=== PATIENT | male | born 1970 | race Caucasian/White ===

== ENCOUNTER 2018-10-15 15:11 | Observation (INO) | payer BC ==
[~2018-10-15] VITALS: Ht 190.5 cm; Wt 110.9 kg
--- NOTE | ~2018-10-15 | ST ---
PATIENT:STEVE CASTRO MEDICAL RECORD: [id number] SEX: M [facility] ORDER #: ADMISSION DATE: 10/15/18 AGE OF PATIENT: 48 REFERRING PHYSICIAN: INTERPRETING PHYSICIAN: JESSIKA RAIN MD DATE OF SERVICE: 10/16/2018 EXERCISE STRESS TEST INDICATION: Chest pain of unknown etiology. He was exercised under standard Edilberto protocol for 6 minutes, terminated due to achievement of maximum target heart rate response with no EKG changes, no dysrhythmias, no anginal symptomatology. OVERALL IMPRESSION: Negative for inducible ischemia at adequate cardiac workload. TRANSINT:[id number] Voice Confirmation ID: [id number] DOCUMENT ID: [id number] JESSIKA RAIN MD CC: [id number] DICTATION DATE: 10/16/18 1322 ENVIRONMENTAL AID: [id number] DIS IN 10/16/18 [place] [id number] [place] [id number]
[2018-10-15] MEDS ORDERED: CARDURA4 MG PO (15:15)
[2018-10-15] MEDS ORDERED: SALINE NASAL SPRAY (15:16)
[2018-10-15] MEDS ORDERED: BAYER CHEWABLE81 MG PO (15:16)
[2018-10-15 15:42] LABS: BASOPHILS 1.2 % (0-2); EOSINOPHILS 3.8 % (0-7); HEMATOCRIT 41.2 % (42.0-54.0); IMMATURE GRANULOCYTES 0.1 % (0-5); LYMPHOCYTES 43.7 % (15-50); MCH 32.4 pg (26.0-34.0); MCHC 36.4 g/dL (31.0-37.0); MEAN PLATELET VOLUME 10.5 fL (7.4-10.4); MONOCYTES 7.1 % (2-11); NEUTROPHILS 44.1 % (40-80); PLATELET COUNT 212 10x3/uL (130-400); RBC 4.63 10x6/uL (4.20-6.10); WBC 6.8 10x3/uL (4.8-10.8)
[2018-10-15 15:58] LABS: APTT 27.2 SECONDS (22.8-39.4); INR 1.06 (0.85-1.17); PROTIME 13.3 SECONDS (11.6-15.0)
[2018-10-15 16:04] LABS: ALKALINE PHOSPHATASE 84 U/L (46-116); ALT (SGPT) 39 U/L (10-68); BILIRUBIN - TOTAL 0.52 mg/dL (0.2-1.3); CALC OSMOLALITY 278 mosm/kg (275-300); CALCIUM 8.8 mg/dL (8.5-10.1); CARBON DIOXIDE 25.9 mmol/L (21.0-32.0); CHLORIDE - SERUM 102 mmol/L (98-107); CREATININE - SERUM 1.1 mg/dL (0.6-1.3); GLUCOSE 111 mg/dL (74-106); POTASSIUM - SERUM 3.3 mmol/L (3.5-5.1); PROTEIN - SERUM 8.1 g/dL (6.4-8.2); SODIUM 139 mmol/L (136-145); UREA NITROGEN 12 mg/dL (7-18); eGFR NON AFRICAN AMERICAN 76 mL/min (90-120)
--- NOTE | 2018-10-15 16:05 | NUR ---
REPORTS PAIN 4/10 PRIOR TO NTG
[2018-10-15 16:18] LABS: CKMB 2.7 U/L (0.0-3.6); CREATINE KINASE 147 UL (21-232); MAGNESIUM - SERUM 1.9 mg/dL (1.8-2.4)
[2018-10-15 16:19] LABS: TROPONIN-I < 0.017 ng/mL (0.000-0.060)
[2018-10-15 16:42] VITALS: BP 121/83
[2018-10-15 18:31] VITALS: BP 121/81
[2018-10-15] MEDS ORDERED: FLUTICASONE PRO16 GM NASAL (19:35)
--- NOTE | 2018-10-15 19:35 | NUR ---
PT ARRIVED TO ROOM 2120 PT IS AAO, UP AD ART. NO S/S OF DISTRESS DENIES ANY CHEST PAIN AT THIS TIME. TELEMETRY APPLIED, QUICK START, MED REC AND HISTORY COMPLETE. NAME AND DATE PLACED ON BOARD. HEART SOUNDS S1S2 RRR LUNGS CLEAR, BOWEL SOUNDS ACTIVE. NO WEAKNESS NOTED. RIGHT AC 20G S/L PT VERBALIZED UNDERSTANDING TO BE NPO AFTER MIDNIGHT FOR POSSIBLE HEART CATH IN MORNING. WAITING TO SEE CARDIOLOGY. FAMILY AT BEDSIDE. OFFERED SNACK. PT WILL CALL FOR ASSIST WHEN NEEDED. WILL CPOC
[2018-10-15] MEDS ORDERED: XANAX0.5 MG PO (19:36)
[2018-10-15] MEDS ORDERED: CYCLOBENZAPRINE10 MG PO (19:37)
[2018-10-16 01:32] VITALS: BP 132/58; Ht 190.5 cm; Wt 110.9 kg
[2018-10-16 04:00] VITALS: BP 133/86
[2018-10-16 05:49] LABS: BASOPHILS 0.7 % (0-2); HEMATOCRIT 41.9 % (42.0-54.0); IMMATURE GRANULOCYTES 0.1 % (0-5); LYMPHOCYTES 30.5 % (15-50); MCHC 35.8 g/dL (31.0-37.0); MCV 89.3 fL (80.0-100.0); MEAN PLATELET VOLUME 10.8 fL (7.4-10.4); MONOCYTES 9.4 % (2-11); NEUTROPHILS 55.3 % (40-80); PLATELET COUNT 216 10x3/uL (130-400); RBC 4.69 10x6/uL (4.20-6.10); WBC 7.3 10x3/uL (4.8-10.8)
[2018-10-16 06:26] LABS: CALC OSMOLALITY 277 mosm/kg (275-300); CALCIUM 8.6 mg/dL (8.5-10.1); CARBON DIOXIDE 25.9 mmol/L (21.0-32.0); CHLORIDE - SERUM 106 mmol/L (98-107); GLUCOSE 82 mg/dL (74-106); POTASSIUM - SERUM 3.7 mmol/L (3.5-5.1); SODIUM 140 mmol/L (136-145); TROPONIN-I < 0.017 ng/mL (0.000-0.060); UREA NITROGEN 13 mg/dL (7-18); eGFR NON AFRICAN AMERICAN 85 mL/min (90-120)
--- NOTE | 2018-10-16 07:30 | NUR ---
ASSESSMENT COMPLETED. ALERT AND ORIENTED. TLEMERTY SHOWS SR. UP AB ART. DENIES ANY NEEDS. TO HAVE A STRESS TEST AND ECH
[2018-10-16 08:25] VITALS: BP 136/85
--- NOTE | 2018-10-16 09:51 | HP ---
PATIENT: STEVE CASTRO MEDICAL RECORD: [id number] ACCOUNT: [id number] LOCATION:[address] : 74 ADMISSION DATE: 10/15/18 PCP: THOR FIERRO MD HISTORY AND PHYSICAL EXAMINATION ADMITTING DIAGNOSES: 1. Chest pain. 2. Anxiety. 3. Hypertension. HISTORY OF PRESENT ILLNESS: This is a gentleman with no previous cardiac history, who just yesterday began having some episodes of chest discomfort, had many typical components for angina. It was a dull aching sensation with radiation to his jaw line down his arm. He is pain free overnight. His troponins are normal. His EKG is normal. His only cardiac risk factor is hypertension for which he takes Cardura and it is well controlled. PHYSICAL EXAMINATION: GENERAL APPEARANCE: Well-nourished, well-developed, appears stated age. Level of distress, comfortable. PSYCHIATRIC: Mental status, alert, normal affect. Orientation, oriented to time, place and person. EYES: Lids and conjunctiva, noninjected. No discharge, no pallor. ENT: Lips, teeth, gums, normal dentition. Oropharynx, no cyanosis, no pallor. NECK: Carotid arteries, bilateral normal upstroke, no bruits, no thrills. JUGULAR VEINS: No jugular venous pressure or distention. CERVICAL LYMPH NODES: Nontender, nonenlarged. THYROID: Not enlarged. Nontender. No nodules. LUNGS: Respiratory effort, unlabored. CHEST: Normal curvature. No thoracic deformity. No chest wall tenderness. Percussion, resonant. Auscultation, clear. No wheezes, no rales, no rhonchi. CARDIOVASCULAR: Precordial exam, nondisplaced. No heaves or pericardial thrills. Rate and rhythm, regular. Heart sounds, normal S1, normal S2. No S3, no gallop, no rub. Systolic murmur, not heard. Diastolic murmur, not heard. EXTREMITIES: No cyanosis, no edema. Peripheral pulses, full and equal in all extremities, except as noted. No bruits appreciated. ABDOMEN: Soft, nondistended. Normal aorta. No bruit. Nontender. No masses. Liver, nontender, no hepatomegaly. Spleen, nontender, no splenomegaly. MUSCULOSKELETAL: No joint tenderness. No joint swelling. No erythema. NEUROLOGICAL: Normal gait, normal strength, normal tone. SKIN: Warm and dry. OVERALL IMPRESSION: Chest pain, normal EKG, normal troponins, minimal risk factors. We will perform stress testing. Further care depends upon his stress test. TRANSINT:[id number] Voice Confirmation ID: [id number] DOCUMENT ID: [id number] HISTORY AND PHYSICAL [id number] STEVE CASTRO, JESSIKA BUTTERFIELD at 0951 CC: [id number] DICTATION DATE: 10/16/18 0759 SHALE PLANER OPERATOR: 10/16/18 0840 ADM IN [facility] [address] [place] [id number]
--- NOTE | 2018-10-16 10:00 | NUR ---
BACK FROM STRESS TEST AND HAVING AN ECHO. NO NEEDS VOICED
--- NOTE | 2018-10-16 15:03 | EC ---
PATIENT:STEVE CASTRO DATE OF SERVICE: 10/15/18 SEX: M MEDICAL RECORD: [id number] DATE OF : 74 LOCATION:D.M2 D.212 AGE OF PATIENT: 48 ADMISSION DATE: 10/15/18 REFERRING PHYSICIAN: INTERPRETING PHYSICIAN: JESSIKA HOLLEY MD ECHOCARDIOGRAM REPORT ECHO CHARGES 4 ECHO COMPLETE Date: 10/16/18 CLINICAL DIAGNOSIS: CHEST PAIN/MURMUR ECHOCARDIOGRAPHIC MEASUREMENTS (adult normal given) AC root (d.<3.7cm) 3.9 cm LV Septum d (<1.2 cm> 1.5 cm Valve Excursion 1.7 cm LV Septum (systole) 1.6 cm Left Atria (s.<4.0cm> 4.2 cm LVPW d(<1.2cm) 1.4 cm RV (d.<2.3cm) 5.0 cm LVPW (sytole) 1.8 cm LV diastole(<5.6CM) 4.8 cm MV E-F(>70mm/sec) cm LV systole 3.4 cm LVOT Diameter 2.7 cm MV exc.(>10mm) 1.0 cm Est.ejection fraction (50-75%) % DOPPLER: LVIT cm/sec A 80.0 cm/sec E 70.0 cm/sec LA cm/sec RVSP 18 mmHg LVOT 93 cm/sec AOP1/2T m/s Asc. Ao 119 cm/sec RVOT 86 cm/sec RA cm/sec PA 124 cm/sec AV Gradient Peak 5.65 mmHg AV Mean 3.28 mmHg AV Area 3.9 cm MV Gradient Peak 2.59 mmHg MV Mean 1.25 mmHg MV Area cm COMMENTS: Welder Repair: Speedy MCKINNON [employer] Attorney: 1 Dr. Holley TAPE# PACS Pericardial Effusion N DATE OF SERVICE: 10/16/2018 FINDINGS: 1. Left ventricular chamber size is within normal limits. Left ventricular systolic function is normal. Overall ejection fraction estimated at 60%. 2. Left atrium, right atrium, and right ventricular chamber sizes are mildly dilated. 3. Valvular structures have normal structure and motion. 4. Doppler interrogation reveals mild tricuspid regurgitation. No other valvular insufficiency or stenosis. ECHOCARDIOGRAM REPORT [id number] STEVE CASTRO 5. No evidence of pericardial effusion or left ventricular thrombus. TRANSINT:[id number] Voice Confirmation ID: [id number] DOCUMENT ID: [id number] JESSIKA HOLLEY MD at 1503 CC: [id number] DICTATION DATE: 10/16/18 1322 WALLCOVERING TEXTURER: 10/16/18 1337 DIS IN 10/16/18 [place] [id number] [place] [id number]
--- NOTE | 2018-10-19 09:23 | MORECARE ---
CASE MANAGEMENT DISCHARGE SUMMARY PATIENT: STEVE CASTRO UNIT: [id number] ADM DATE: 10/15/18 AGE: 48 : 74 SEX: M ROOM/BED: D.2121 AUTHOR: ANIVAL LOVE PHYSICIAN: REFERRING PHYSICIAN: JESSIKA RAIN MD DATE OF SERVICE: 10/19/18 Discharge Plan Patient Name: STEVE CASTRO [facility] : 1970 Planned Disposition: Home Anticipated Discharge Date: 10/16/18 Discharge Date: 10/16/2018 Expected LOS: 1 Initial Reviewer: [email or web address] Initial Review Date: 10/19/2018 Generated: 10/19/18 10:23 am Patient Name: STEVE CASTRO Page [phone] at 0923 All edits/amendments must be made on the electronic document DICTATION DATE: 10/19/18921 ARTIFICIAL LOG MACHINE OPERATOR: CRHISSY 10/19/18921 RPT#: [id number] DC DATE:10/16/18 STATUS: DIS IN [facility] [address] [place] [address] END OF REPORT
== END 2018-10-16 11:35 | disposition home or self-care (01) ==
LOC: D.CATH 15:11 → D.ER 15:11 → OBSVTIME 18:42 → D.M2 18:42 → EDSTATUS 19:07 → D.M2 10-16 11:35
PROVIDERS: Family Medicine; ADMIT Internal Medicine Interventional Cardiology; ATTEND Internal Medicine Interventional Cardiology
DX: R07.9 Chest pain, unspecified (principal); F41.9 Anxiety disorder, unspecified; I10 Essential (primary) hypertension

== ENCOUNTER → 2019-12-02 09:42 | Outpatient (CLI) | payer BC ==
[2018-10-16 01:32] VITALS: BMI 30.5
[~2019-12-02 09:42] MED LIST: BAYER CHEWABLE81 MG PO; CARDURA4 MG PO; CYCLOBENZAPRINE10 MG PO; FLUTICASONE PRO16 GM NASAL; SALINE NASAL SPRAY; XANAX0.5 MG PO
== END | disposition home or self-care (01) ==
LOC: D.HCCARDIO 09:42 → D.HCCECHO 10:30
PROVIDERS: ATTEND Internal Medicine Cardiovascular Disease
DX: R01.1 Cardiac murmur, unspecified (principal); I20.9 Angina pectoris, unspecified

== ENCOUNTER 2019-12-14 12:26 | Outpatient (CLI) | payer BC ==
[~2019-12-14] VITALS: Ht 190.5 cm; Wt 101.8 kg
--- NOTE | ~2019-12-14 | HEMODYNAMI ---
PATIENT:STEVE CASTRO MEDICAL RECORD: [id number] : 74 LOCATION:D.CAT ADMISSION DATE: 12/14/19 Generatedon:12/14/201914:35 Patient name: STEVE CASTRO Patient #: [id number] SSN: [id number] : 1970 Date of study: 12/14/2019 Page: Of Hemodynamic Procedure Report Patient Data Patient Demographics Procedure consent was obtained First Name: STEVE Gender: Male Last Name: GLORIA : 1970 Patient #: [id number] Age: 49 year(s) Race: SSN: [id number] Additional ID: [id number] Contact details [address]: [address] [place] [address] State: [place] City: [place] Zip code: [address] Past Medical History Performed procedures and imaging results Date Procedure Procedure Results Comments Stress testing Positive->Intermediate with SPECT MPI risk Allergies: No known allergies Admission Admission Data Admission Date: 12/14/2019 Admission Time: 12:26 Arrival Date: 12/14/2019 Arrival Time: 0:00 Admit Source: Other Insurance Payor: Private health insurance [facility] #: [id number] Height (in.): 75 BSA: 2.3 (m2) Height (cm.): 190.5 BMI: 28 (kg/m2) Weight (lbs.): 224 Weight (kg.): 101.6 Lab Results Lab Result Date: 12/14/2019 Lab Result Time: 0:00 Biochemistry Name Units Result Min Max BUN mg/dl 11 --(-*--)-- 7 18 Creatinine mg/dl 1.1 --(--*-)-- 0.6 1.3 eGFR ml/min 76.12730 *-(----)-- 90 120 NONAFRICAN CBC Name Units Result Min Max Hematocrit % 42.7 --(*---)-- 42 54 Hemoglobin g/dl 15.1 --(-*--)-- 13.5 17.5 Procedure Procedure Types Cath Procedure Diagnostic Procedure [facility] w/Coronaries Procedure Description Procedure Date Procedure Date: 12/14/2019 Procedure Start Time: 14:20 Procedure End Time: 14:33 Procedure Staff Name Function Cm Lopez MD Performing Physician Tony Siu RN Nurse Lucien Gallego RT Monitor Carole Walsh RT Scrub Procedure Data Cath Procedure Fluoroscopy Diagnostic fluoroscopy Total fluoroscopy Time: 0.8 time: 0.8 min min Diagnostic fluoroscopy Total fluoroscopy dose: 293 dose: 293 mGy mGy Contrast Material Contrast Material Type Amount (ml) Isovue 300 44 Entry Location Entry Primary Successful Side Size Upsize Upsize Entry Closure Szymanski ccessful Closure Location (Fr) 1 (Fr) 2 (Fr) Remarks Device Remarks Radial Right 6 Fr Mechanical artery Short Compression Estimated blood loss: 10 ml Diagnostic catheters Device Type Used For End Catheter Placement DIAGNOSTIC Dennis Port 110cm 5 Procedure Fr catheter ([id number]) Procedure Medications Medication Administration Route Dosage 0.9% NaCl I.V. 100 ml/hr Oxygen etCO2 Nasal cannula 2 l/min Heparin Flush Bag added to field 2 bags (1000units/500ml NS) Lidocaine 2% added to field 20 Radial Cocktail added to field 1 syringe (Verapamil 2mg/Nitro 400mcg/Heparin 1500units) Versed I.V. 2 mg Fentanyl I.V. 100 mcg Versed I.V. 2 mg Fentanyl I.V. 100 mcg Versed I.V. 2 mg Versed I.V. 2 mg Hemodynamics Rest BSA: 2.3 (m2) HGB: 15.1 (g/dl) O2 Consumption: Estimated: 300.07 (ml/min) O2 Con sumption indexed: Estimated:130.47 (ml/min/m) Heart Rate: 97 (bpm) Pressure Samples Time Site Value (mmHg) Purpose Heart Use Rate(bpm) 14:23 LV 126/7,9 Snapshot 103 Gradients Valve Time Site Site Mean SEP/DFP Peak To Heart Use 1 2 (mmHg) (sec/min) Peak Rate (mmHg) (bpm) Aortic 14:24 LV AO 112 Snapshots Pre Cath Intra NCS Post Cath Vital Signs Time Heart Resp SPO2 etCO2 NIBP (mmHg) Rhythm Pain Sedation Rate (ipm) (%) (mmHg) Status Level (bpm) 14:01:02 93 11 99 29.1 139/94(111) NSR 0 (11) 10(A) , No pain 14:05:22 91 19 99 33.5 144/89(120) NSR 0 (11) 10(A) , No pain 14:09:45 94 13 99 35 148/99(116) NSR 0 (11) 10(A) , No pain 14:14:07 97 13 98 36.5 146/102(118) NSR 0 (11) 10(A) , No pain 14:18:29 100 12 96 29.1 150/99(117) NSR 0 (11) 10(A) , No pain 14:22:55 110 16 97 22.3 139/86(112) NSR 0 (11) 10(A) , No pain 14:27:16 106 14 94 35 141/85(109) NSR 0 (11) 10(A) , No pain 14:31:40 91 13 94 0 124/85(100) NSR 0 (11) 10(A) , No pain Medications Time Medication Route Dose Verified Delivered Reason Notes E ffectiveness by by 13:59:01 0.9% NaCl I.V. 100 Tony Tony Per ml/hr Salbador Lorigan physician RN RN 13:59:11 Oxygen etCO2 2 l/min Tony Tony for low 02 Nasal Lorigan Lorigan sats cannula RN RN 13:59:24 Heparin Flush added 2 bags Tony Tony used for Bag to Lorigan Lorigan procedure (1000units/500ml field RN RN NS) 13:59:34 Lidocaine 2% added 20ml Tony Tony for local to vial Lorigan Lorigan anesthetic field RN RN 13:59:46 Radial Cocktail added 1 Tony Tony used for (Verapamil to syringe Lorigan Lorigan procedure 2mg/Nitro field RN RN 400mcg/Heparin 1500units) 14:13:49 Versed I.V. 2 mg Tony Tony for Lorigan Lorigan sedation RN RN 14:13:57 Fentanyl I.V. 100 mcg Tony Tony for Lorigan Lorigan sedation RN RN 14:18:08 Versed I.V. 2 mg Tony Tony for Lorigan Lorigan sedation RN RN 14:18:16 Fentanyl I.V. 100 mcg Tony Tony for Lorigan Lorigan sedation RN RN 14:20:38 Versed I.V. 2 mg Tony Tony for Salbador Siu sedation RN RN 14:22:55 Versed I.V. 2 mg Tony Tony for Salbador Siu sedation RN utilities estimator and drafter Log Time Note 13:31:50 Informed consent obtained and on chart 13:32:12 Diagnostic Cath Status : Elective 13:32:25 Arrival Date: 12/14/2019 12:00:00 AM 13:32:26 Admit Source: Other 13:32:29 Insurance Payor : Private health insurance 13:34:35 Lab Result : Creatinine 1.1 mg/dl 13:34:35 Lab Result : BUN 11 mg/dl 13:34:35 Lab Result : eGFR NONAFRICAN 76.93530 ml/min 13:34:35 Lab Result : Hemoglobin 15.1 g/dl 13:34:35 Lab Result : Hematocrit 42.7 % 13:38:59 Procedure Status Elective Heart Cath (OP). 13:39:06 Time tracking: Regular hours (M-F 7:00 - 5:00) 13:39:10 Plan of Care:Hemodynamics will remain stable., Cardiac rhythm will remain stable., Comfort level will be maintained., Respiratory function will remain adequate., Patient/ family verbilizes understanding of procedure., Procedure tolerated without complication., Recovers from procedure without complications.. 13:39:36 H&P Date Dictated: 11/22/2019 Within 30 days and on chart.. 13:39:37 Pre-procedure instructions explained to patient. 13:39:38 Pre-op teaching completed and patient verbalized understanding. 13:39:39 Family unavailable. 13:39:41 Patient NPO since Midnight. 13:39:46 Patient allergic to No known allergies 13:39:54 Lab results completed and on chart. 13:40:10 Stress Test: yes; abnormal INFERIOR WALL 13:40:12 Alarms reviewed by R. N. 13:40:12 Sharps counted by scrub and verified by R.N. 13:49:25 Tony Siu RN sent for patient. Start room use. 13:51:56 Patient received from Pre/Post Procedure Room to CCL 1 Alert and oriented. Tansferred to table in Supine position. 13:51:58 Correct patient and procedure confirmed by team. 13:51:58 Warm blankets applied, and pastor hugger turned on for patient comfort. 13:51:59 ECG and BP/O2 sat monitors applied to patient. 13:52:02 Is the patient allergic to Iodine/contrast media? No. 13:59:01 0.9% NaCl 100 ml/hr I.V. was administered by Tony Siu RN; Per physician; Verbal order read back and verified. 13:59:11 Oxygen 2 l/min etCO2 Nasal cannula was administered by Tony Siu RN; for low 02 sats; Verbal order read back and verified. 13:59:24 Heparin Flush Bag (1000units/500ml NS) 2 bags added to field was administered by Tony Siu RN; used for procedure; Verbal order read back and verified. 13:59:34 Lidocaine 2% 20ml vial added to field was administered by Tony Siu RN; for local anesthetic; Verbal order read back and verified. 13:59:46 Radial Cocktail (Verapamil 2mg/Nitro 400mcg/Heparin 1500units) 1 syringe added to field was administered by Tony Siu RN; used for procedure; Verbal order read back and verified. 13:59:51 Vital chart was started 14:00:12 Baseline sample Acquired. 14:00:22 Rhythm: sinus tachycardia 14:00:25 Full Disclosure recording started 14:01:08 Is patient on blood thinner?No 14:01:16 Patient diabetic? No. 14:01:18 If diabetic: On Metformin? No 14:01:21 ----Pre-sedation anethsthesia assessment.---- 14:01:24 Previous problem with sedation/anesthesia? No ? 14:01:27 Snore? Yes 14:01:29 Sleep apnea? Yes 14:01:32 Deviated septum? No 14:01:33 Opens mouth fully? Yes 14:01:34 Sticks out tongue? Yes 14:01:37 Airway obstruction? No ? 14:01:42 Dentures? No ? 14:01:52 Pre procedure: right dorsailis pedis pulse 2+ Normal; easily identifiable; not easily obliterated 14:02:01 Modified Raul's test Ulnar < 7 seconds 14:02:04 Patient pain scale 0/10 ?. 14:02:12 IV patent on arrival in right forearm with 0.9% NaCl at [facility]. 14:02:34 Right Radial & Right Groin area was prepped with chlora-prep and draped in sterile fashion 14:05:42 Patient Height : 75 inches 14:05:51 Patient Weight : 224 lbs 14:09:12 Risk of Mortality: <.1% 14:09:20 Risk of blood transfusion: 0.1% 14:09:30 Risk of OCTAVIA: .1% 14::57 Physician arrived 14::58 --------ALL STOP TIME OUT------ 14:09:59 Final Timeout: patient, procedure, and site verified with staff and physician. All members of the team are in agreement. 14:10:02 Right Radial & Right Groin site verified by team. 14:10:08 Fire Safety Assessment: A--An alcohol-based skin anteseptic being used preoperatively., C--Open oxygen or nitrous oxide is being used., D--An ESU, laser, or fiber-optic light is being used. 14:10:17 Physical assessment completed. ASA score P 2 - A patient with mild systemic disease as per Cm Lopez MD. 14:10:50 2) 60-89 Mildly reduced kidney function, and other findings (as for stage 1) point to kidney disease. 14:11:14 Maximum allowable contrast dose (3.7 X eGFR X 0.75)210 ml. 14:11:19 Sedation plan: IV Moderate Sedation Medication:Versed, Fentanyl 14:13:49 Versed 2 mg I.V. was administered by Tony Siu RN; for sedation; Verbal order read back and verified. 14:13:57 Fentanyl 100 mcg I.V. was administered by Tony Siu RN; for sedation; Verbal order read back and verified. 14:16:10 Zero performed for pressure channel P1 14:18:08 Versed 2 mg I.V. was administered by Tony Siu RN; for sedation; Verbal order read back and verified. 14:18:16 Fentanyl 100 mcg I.V. was administered by Tony Siu RN; for sedation; Verbal order read back and verified. 14:19:31 Use device set Radial Dx or PCI 14:19:37 ACIST Syringe (90297) opened to sterile field. 14:19:38 Medline Cath Pack ([id number]) opened to sterile field. 14:19:40 Bag Decanter (2002S) opened to sterile field. 14:19:41 ACIST Hand Control (96074) opened to sterile field. 14:19:41 ACIST Manifold (01516) opened to sterile field. 14:19:42 Tegaderm 4 x 4 (1626W) opened to sterile field. 14:19:43 MBrace Wrist Support ([id number]) opened to sterile field. 14:19:49 EMERALD Guide Wire (777-957) opened to sterile field. 14:19:50 SHEATH 6FR RAIN (3015559) opened to sterile field. 14:19:59 Procedure started. 14:20:05 Local anesthetic to right radial artery with Lidocaine 2% by Cm Lopez MD.INITIAL ACCESS ONLY 14:20:38 Versed 2 mg I.V. was administered by Tony Siu RN; for sedation; Verbal order read back and verified. 14:21:50 A 6 Fr Short sheath was inserted into the Right Radial artery 14:22:22 A DIAGNOSTIC Dennis Port 110cm 5 Fr catheter (564905) was advanced over the wire and used for Procedure. 14:22:55 Versed 2 mg I.V. was administered by Tony Siu RN; for sedation; Verbal order read back and verified. 14:23:44 LV gram done using GRANADOS 14:23:46 LV hemodynamics recorded. 14:23:56 EF : 55 % 14:24:30 LCA angiography performed. 14:25:18 RCA angiography performed. 14:25:36 Catheter removed. 14:25:49 ZEPHYR REGULAR TR BAND (058960) opened to sterile field. 14:26:34 Sheath removed intact; hemostasis achieved with Mechanical Compression to the Right Radial artery. 14:26:37 Procedure ended.(Physican Out) 14:27:53 Fluoroscopy time 00.80 minutes. 14:28:01 Fluoroscopy dose: 293 mGy 14:28:01 Flurop Dose total: 293 14:28:10 Dose Area Product 73.1 mGy/cm. 14:28:15 Contrast amount:Isovue 300 44ml. 14:28:20 Sharps counted by scrub and verified by R.N. 14:30:52 [place] band inflated with 10cc of air. 14:31:14 Insertion/operative site no bleeding no hematoma. 14:31:23 Post right radial artery:stable 14:31:26 Post Procedure Pulses reassessed and unchanged 14:31:31 Post-procedure physical assessment completed. ASA score P 2 - A patient with mild systemic disease as per Cm Lopez MD. 14:31:36 Post procedure rhythm: unchanged. 14:31:40 Estimated blood loss: 10 ml 14:31:45 Patient needs reinforcement of post procedure teaching. 14:32:18 Procedure and supply charges have been captured, reviewed, submitted and are correct. 14:32:22 Vital chart was stopped 14:32:51 Operative report dictated upon procedure completion. 14:32:53 See physician's report for complete and final results. 14:32:57 Report given to Pre/Post Procedure Room. 14:33:02 Patient transfered to Pre/Post Procedure Room with Stretcher. 14:33:06 Procedure ended. 14:33:06 Full Disclosure recording stopped 14:33:12 End room use (Document Last) Device Usage Item Name Manufacture Quantity Catalog Hospital Part Current Minima l Lot# / Number Charge Number Stock Stock Serial# Code ACIST Acist 1 [id number] [id number] [id number] 20 Syringe Medical (39375) Systems Inc Medline Medline 1 [id number] [id number] 10164 440287 5 Cath Pack ([id number]) Bag Microtek 1 2001S 943419 16776 903122 5 Decanter Medical Inc. () ACIST Hand Acist 1 94291 024600 915589 183637 5 Control Medical (41087) Systems Inc ACIST Acist 1 15698 850126 996279 471682 5 Manifold Medical (43013) Systems Inc Tegaderm 4 3M 1 1626W 221730 146105 581268 5 x 4 (1626W) MBrace Advanced 1 140-0250-00 562991 35334 900834 5 Wrist Vascular Support Dynamics ([id number]) EMERALD Cardinal 1 502-455 269133 758866 534071 5 Guide Wire Health (637-455) SHEATH 6FR Cardinal 1 [id number] 946736 0235138 858339 5 [facility] Health (7973173) DIAGNOSTIC Terumo 1 40-3471 111685 700815 232465 5 Dennis Port 110cm 5 Fr catheter (678330) ZEPHYR Cardinal 1 821930 917107 5730718 293104 5 REGULAR TR Health BAND (263043) Signature Audit [place] Stage Time Signature Unsigned Intra-Procedure 12/14/2019 Lucien Gallego 2:34:22 PM RT(R) (CV) Intra-Procedure 12/14/2019 Tony 2:34:59 PM Salbador MENENDEZ Intra-Procedure 12/14/2019 Cm Altman 2:35:35 PM Zana [facility] [facility] [address] [place] [address]
[2019-12-14] MEDS ORDERED: OMEPRAZOLE40 MG PO (12:43)
[2019-12-14] MEDS ORDERED: BUPROPION XL150 MG PO (12:43)
[2019-12-14 12:59] VITALS: BP 144/97; Ht 190.5 cm; Wt 101.8 kg
[2019-12-14 13:04] LABS: BASOPHILS 0.3 % (0-2); EOSINOPHILS 1.8 % (0-7); HEMATOCRIT 42.7 % (42.0-54.0); HEMOGLOBIN 15.1 g/dL (13.5-17.5); IMMATURE GRANULOCYTES 0.2 % (0-5); LYMPHOCYTES 26.4 % (15-50); MCH 32.1 pg (26.0-34.0); MCHC 35.4 g/dL (31.0-37.0); MCV 90.9 fL (80.0-100.0); MEAN PLATELET VOLUME 10.2 fL (7.4-10.4); MONOCYTES 7.3 % (2-11); PLATELET COUNT 225 10x3/uL (130-400); RDW 11.8 % (11.5-14.5); WBC 6.1 10x3/uL (4.8-10.8)
[2019-12-14 13:22] LABS: ALT (SGPT) 34 U/L (10-68); CALC OSMOLALITY 279 mosm/kg (275-300); CALCIUM 9.4 mg/dL (8.5-10.1); CARBON DIOXIDE 27.3 mmol/L (21.0-32.0); CHLORIDE - SERUM 106 mmol/L (98-107); CHOL - HDL RATIO 4.4 ratio (2.3-4.9); CHOLESTEROL, TOTAL 158 mg/dL (0-200); CREATININE - SERUM 1.1 mg/dL (0.6-1.3); GLUCOSE 100 mg/dL (74-106); HDL CHOLESTEROL 36 mg/dL (32-96); LDL CHOLESTEROL 103 mg/dL (0-100); LDL-HDL RATIO 2.9 ratio (1.5-3.5); POTASSIUM - SERUM 3.9 mmol/L (3.5-5.1); SODIUM 141 mmol/L (136-145); TRIGLYCERIDE 96 mg/dL (30-200); UREA NITROGEN 11 mg/dL (7-18); eGFR NON AFRICAN AMERICAN 76 mL/min (90-120)
--- NOTE | 2019-12-14 14:40 | NUR ---
PT REC'D TO ROOM 3 VIA STRETCHER FROM TEACHING YOUNG. MONITORS ESTAB. PT AWAKE AND ORIENTED. SEE INSURANCE ADVISOR. ALARMS ON AND C/L IN REACH.
--- NOTE | 2019-12-14 14:55 | NUR ---
VSS. PT SITTING UP IN BED. HR 93, B/P 123/83. R WRIST SITE C/D/I, NO S/S BLEEDING OR HEMATOMA, BRISK CAP REFILL. PT GIVEN JUICE AND WATER PER REQUEST.
--- NOTE | 2019-12-14 15:25 | NUR ---
R WRIST SITE C/D/I, NO S/S BLEEDING OR HEMATOMA. R ARM/HAND WARM WITH PULSES PALP. GIVEN CRACKERS PER REQUEST, REFUSED SANDWICH. ALARMS ON AND C/L IN REACH.. SIG OTHER AT BS.
--- NOTE | 2019-12-14 15:40 | NUR ---
R WRIST C/D/I, 2CC AIR REMOVED FROM Z BAND. WILL CONT CLOSE MONITORING. GIVEN SANDWICH TRAY PER REQUEST.
--- NOTE | 2019-12-14 15:45 | NUR ---
R WRIST SITE C/D/I, TOTAL 5CC AIR REMOVED FROM Z BAND. VSS. PT DENIES NEEDS.
--- NOTE | 2019-12-14 16:05 | NUR ---
ALL AIR REMOVED FROM Z BAND, NO S/S BLEEDING OR HEMATOMA. WILL CONT CLOSE MONITORING.
--- NOTE | 2019-12-14 16:20 | NUR ---
Z BAND REMOVED, NO S/S BLEEDING OR HEMATOMA. TEGADERM DSG APPLIED. PIV D/C'D INTACT, DSG APPLIED. PT ALLOWED UP TO GET DRESSED.
--- NOTE | 2019-12-14 16:30 | NUR ---
PT UP TO BR INDEPEDENTLY. ALL D/C INSTRUCTIONS REVIEWED WITH PT AND SIG. OTHER, INCLUDING RESTRICTIONS, S/S TO REPORT AND FOLLOW UP. 1635 - PT D/C'D VIA W/C TO PRIVATE VEHICLE. PT HAS ALL PAPER WORK AND BELONGINGS.
--- NOTE | 2019-12-16 08:17 | OP ---
PATIENT NAME: STEVE CASTRO MEDICAL RECORD: [id number] :74 LOCATION:D.CAT ADMISSION DATE: SURGEON: SELIN MOREIRA MD DATE OF OPERATION: 12/14/2019 PROCEDURE: Left heart catheterization, selective coronary angiography, right radial approach. CATHETERS: Radial sheath, Palmer catheter. The procedure was well tolerated. The patient was returned to the velasquez. Sheath was removed. TR band was placed. FINDINGS: Left ventriculography in 30-degree GRANADOS view; normal wall motion and normal systolic function. CORONARY ANATOMY: LEFT MAIN: Left main is free of disease. LAD: Free of disease in the diagonal system. CIRCUMFLEX: Free of disease in the marginal system. RIGHT CORONARY ARTERY: Dominant artery gives rise to PDA, free of disease. IMPRESSION: Normal left ventricular systolic function, normal coronary anatomy. TRANSINT:[id number] Voice Confirmation ID: [id number] DOCUMENT ID: [id number] SELIN MOREIRA MD at 0817 CC: [id number] DICTATION DATE: 12/14/19 1434 DRUG COUNSELOR: 12/14/19 2146 DEP CLI 12/14/19 [place] [id number] [place] [address]
== END 2019-12-14 16:35 | disposition home or self-care (01) ==
LOC: D.CATH 12:26
PROVIDERS: ATTEND Internal Medicine Interventional Cardiology
DX: R07.9 Chest pain, unspecified (principal); I20.9 Angina pectoris, unspecified; I10 Essential (primary) hypertension; R01.1 Cardiac murmur, unspecified; E78.5 Hyperlipidemia, unspecified